=== PATIENT | female | born 1985 | race African-American/Black ===

== ENCOUNTER 2016-07-11 11:06 | Inpatient (IN) | payer OTHER ==
[2016-07-11] VITALS (21 sets, daily range): BP systolic 108–133; BP diastolic 53–76
[~2016-07-11] VITALS: Ht 157.5 cm; Wt 84.0 kg
[2016-07-11] MEDS ORDERED: PRENATAL TABLE1 EAC3 PO (11:46)
[2016-07-11] MEDS ORDERED: FIBER500 MG PO (11:48)
[2016-07-11 14:23] LABS: EOSINOPHIL (%) 0.1 % (0-5); HEMATOCRIT 34.8 % (36.0-46.0); IMMATURE GRANULOCYTE (%) 1.1 % (0.0-0.7); IMMATURE GRANULOCYTE COUNT 0.1 K/uL; INSTRUMENT ABS NEUTROPHIL CT 8.9 K/uL; LYMPHOCYTE COUNT 1.6 K/uL (1.0-2.8); MCH 26.3 PG (29.0-34.0); MCV 79.5 FL (83-99); MEAN PLAT.VOLUME 8.5 uM^3 (9.5-12.4); MONOCYTE (%) 5.7 % (3-12); MONOCYTE COUNT 0.6 K/uL (0-0.8); NEUTROPHIL COUNT 8.9 K/uL (1.8-6.4); PLATELET COUNT 235 K/uL (156-360); RBC DIS.WIDTH-CV 13.4 % (11.8-14.6); RBC DIS.WIDTH-SD 38.5 % (39-53); RED BLOOD COUNT 4.38 M/uL (3.80-5.20); WHITE BLOOD COUNT 11.2 K/uL (4.1-10.2)
[2016-07-12 07:56] VITALS: BP 121/64
[2016-07-12 14:18] LABS: EOSINOPHIL (%) 0.2 % (0-5); HEMATOCRIT 32.4 % (36.0-46.0); IMMATURE GRANULOCYTE (%) 0.8 % (0.0-0.7); IMMATURE GRANULOCYTE COUNT 0.1 K/uL; INSTRUMENT ABS NEUTROPHIL CT 9.9 K/uL; LYMPHOCYTE COUNT 1.8 K/uL (1.0-2.8); MCH 26.5 PG (29.0-34.0); MCHC 33.3 G/DL (30.0-36.0); MCV 79.4 FL (83-99); MEAN PLAT.VOLUME 8.9 uM^3 (9.5-12.4); MONOCYTE (%) 5.7 % (3-12); MONOCYTE COUNT 0.7 K/uL (0-0.8); NEUTROPHIL (%) 78.9 % (45-76); NEUTROPHIL COUNT 9.9 K/uL (1.8-6.4); PLATELET COUNT 240 K/uL (156-360); RBC DIS.WIDTH-CV 13.7 % (11.8-14.6); RBC DIS.WIDTH-SD 39.7 % (39-53); RED BLOOD COUNT 4.08 M/uL (3.80-5.20); WHITE BLOOD COUNT 12.6 K/uL (4.1-10.2)
[2016-07-12 15:56] VITALS: BP 115/64
== END 2016-07-12 21:00 | disposition home or self-care (01) | DRG 775 ==
LOC: LDRP-OP 11:06 → 2WEST 11:07 → LDRP-OP 08-13 14:14
PROVIDERS: Advanced Practice Midwife
PROC: 00HU33Z Insertion of Infusion Device into Spinal Canal, Percutaneous Approach (ICD-10-PCS; principal; 2016-07-11)
PROC: 10E0XZZ Delivery of Products of Conception, External Approach (ICD-10-PCS; principal; 2016-07-11)
PROC: 3E0R3CZ (ICD-10-PCS; principal; 2016-07-11)
DX: O99.344 Other mental disorders complicating childbirth (principal); O99.214 Obesity complicating childbirth; F41.9 Anxiety disorder, unspecified; E66.9 Obesity, unspecified; Z68.33 Body mass index [BMI] 33.0-33.9, adult; Z3A.39 39 weeks gestation of pregnancy; Z37.0 Single live birth
CPT/HCPCS: 85025; 85025 91; C1755; J7120